=== PATIENT | male | born 1975 | race Two or more races ===

== ENCOUNTER 2018-07-10 11:33 | Emergency (ER) | payer BC ==
[~2018-07-10] VITALS: Ht 182.9 cm; Wt 117.9 kg
[2018-07-10] MEDS ORDERED: MORPHINE SULF INJ 2 MG/ML SYRINGE 1ML ONE (12:41)
[2018-07-10] MEDS ORDERED: ONDANSETRON HCL 4 MG/2 ML VIAL ONE (12:42)
[2018-07-10] MEDS ORDERED: ONDANSETRON HCL 4 MG/2 ML VIAL IV ONE (12:45)
[2018-07-10] MEDS ORDERED: MORPHINE SULFATE 4 MG/ML SYR/VIAL IV ONE (12:45)
[2018-07-10] MEDS ORDERED: ETOMIDATE (2MG/ML) 20ML VIAL IV ONE (13:45)
[2018-07-10 13:50] VITALS: BP 124/74
[2018-07-10] MEDS ORDERED: TETANUS-DIPTH-ACEL PERTUSSIS 0.5ML SYRG IM ONE (14:45)
== END 2018-07-10 15:41 | disposition home or self-care (01) ==
LOC: ER 11:33
DX: S93.05XA Dislocation of left ankle joint, initial encounter (principal); W10.9XXA Fall (on) (from) unspecified stairs and steps, initial encounter; Y93.89 Activity, other specified; Y99.8 Other external cause status; Y92.89 Other specified places as the place of occurrence of the external cause
CPT/HCPCS: 27840; 73600; 73610; 90471; 90715; 96374; 96375; 99285; J2270; J2405